=== PATIENT | male | born 1970 ===

== ENCOUNTER 2018-11-11 14:42 | Emergency (ER) | payer OTHER ==
--- NOTE | 2018-11-11 15:41 | RAD REPORT ---
EXAM DESCRIPTION: CT - Stone Protocol - 11/11/2018 3:20 pm CLINICAL HISTORY: Abdominal pain. Flank pain COMPARISON: None. TECHNIQUE: Computed axial tomography of the abdomen pelvis was obtained without oral or IV contrast. Lack of IV and oral contrast limits evaluation of solid organs, bowel, and vessels. Coronal reformat tamiko images were obtained and reviewed. All CT scans are performed using dose optimization technique as appropriate and may include automated exposure control or mA/KV adjustment according to patient size. FINDINGS: 2 millimeter left renal calculus without hydronephrosis. A right renal calculus is not see n. An ureteral calculus is not noted. A bladder calculus is not present. The liver, pancreas and adrenals appear grossly normal. 19 millimeter soft tissue structure left upper lobe likely represents accessory spleen. No additional splenic tissue noted There is no evidence of diverticulitis. The appendix appears normal Small inguinal hernias contain fat IMPRESSION: 2 millimeter nonobstructing left renal calculus
[2018-11-11] MEDS ORDERED: KETOROLAC 30 MG/ML INJ ONE (16:37)
[2018-11-11 17:11] LABS: Absolute Monocytes 0.9 K/uL (0.1-1.3); Absolute Neutrophil 7.2 K/uL (1.8-8.0); Basophils % 0.8 % (0-1.3); Eosinophils % 0.3 % (0-4.4); Hematocrit 40.9 % (39.6-49.0); Lymphocytes % 26.7 % (15.3-44.8); Monocytes % 7.7 % (3.3-12.3); RBC Red Blood Cell Count 4.37 M/uL (4.33-5.43)
--- NOTE | 2018-11-11 17:16 | EDPHYS ---
Physician Documentation [facility] Name: Kamron Murdock Age: 48 yrs Sex: Male : 1970 Arrival Date: 11/11/2018 Time: 14:45 Bed 5 Private MD: ED Physician Eloy Hilton HPI: 11/11 15:11 This 48 yrs old Male presents to ER via EMS with complaints of Possible Kidney Stone. ps1 15:11 patient with left flank pain since Sunday. States that he was started on Bactrim ps1 from [facility]. Pain is persistent. Rated as moderate. Hx of kidney stones. Feels like the same. Pain in left flank with radiation to groin. Reports fever. No NVD. . Historical: - Allergies: 14:51 No Known Allergies; ph - Home Meds: 14:51 atorvastatin oral oral [Active]; ph - PMHx: 14:51 Hypertension; Hyperlipidemia; Asthma; Kidney stones; ph - Immunization history:: Adult Immunizations up to date. - Social history:: Smoking status: Patient/guardian denies using tobacco. - Ebola Screening: : No symptoms or risks identified at this time. ROS: 15:11 Constitutional: Negative for fever, chills, and weight loss, Eyes: Negative for injury, ps1 pain, redness, and discharge, Cardiovascular: Negative for chest pain, palpitations, and edema, Respiratory: Negative for shortness of breath, cough, wheezing, and pleuritic chest pain, Abdomen/GI: Negative for abdominal pain, nausea, vomiting, diarrhea, and constipation, MS/Extremity: Negative for injury and deformity, Skin: Negative for injury, rash, and discoloration, Neuro: Negative for headache, weakness, numbness, tingling, and seizure. 15:11 : Positive for flank pain. Exam: 15:11 Constitutional: This is a well developed, well nourished patient who is awake, alert, ps1 and in no acute distress. Head/Face: Normocephalic, atraumatic. Eyes: Pupils equal round and reactive to light, extra-ocular motions intact. Lids and lashes normal. Conjunctiva and sclera are non-icteric and not injected. Cardiovascular: Regular rate and rhythm. No gallops, murmurs, or rubs. Normal PMI, no JVD. No pulse deficits. Respiratory: Lungs have equal breath sounds bilaterally, clear to auscultation and percussion. No rales, rhonchi or wheezes noted. No increased work of breathing, no retractions or nasal flaring. Abdomen/GI: Soft, non-tender, with normal bowel sounds. No distension or tympany. No guarding or rebound. No evidence of tenderness throughout. Skin: Warm, dry with normal turgor. Normal color with no rashes, no lesions, and no evidence of cellulitis. MS/ Extremity: Pulses equal, no cyanosis. Neurovascular intact. Full, normal range of motion. 15:11 : CVA tenderness, on the left. Vital Signs: 14:49 BP 130 / 79; Pulse 65; Resp 18; Temp 98.9(TE); Pulse Ox 95% on R/A; Weight 104.33 kg; ph Height 5 ft. 6 in. (167.64 cm); Pain 8/10; 16:30 BP 161 / 100; Pulse 68; Resp 18; Pulse Ox 98% on R/A; ph 17:30 BP 147 / 87; Pulse 68; Resp 18; Temp 97.8; Pulse Ox 98% on R/A; ph 14:49 Body Mass Index 37.12 (104.33 kg, 167.64 cm) ph MDM: 15:04 Patient medically screened. ps1 11/11 15:02 Order name: CBC with Diff; Complete Time: 17:15 ps1 11/11 15:02 Order name: Lipase; Complete Time: 18:56 ps1 11/11 15:02 Order name: CMP; Complete Time: 18:56 ps1 11/11 15:02 Order name: CT Stone Protocol; Complete Time: 16:18 ps1 11/11 17:14 Order name: Urine Dipstick--Ancillary (enter results); Complete Time: 18:56 bd 11/11 15:02 Order name: IV Saline Lock; Complete Time: 15:17 ps1 11/11 15:02 Order name: Labs collected and sent; Complete Time: 16:50 ps1 11/11 15:02 Order name: Urine Dipstick-Ancillary (obtain specimen); Complete Time: 17:06 ps1 Administered Medications: 16:30 Drug: TORadol 30 mg Route: IVP; Site: right antecubital; ph 17:05 Follow up: Response: No adverse reaction; Pain is decreased ph Disposition: 11/11/18 17:15 Discharged to Home. Impression: Left Kidney Stone with collic. - Condition is Stable. - Discharge Instructions: Kidney Stones, Tkum-ly-Fizy. - Prescriptions for ketorolac 10 mg Oral tablet - take 1 tablet by ORAL route every 4-6 hours not to exceed 40 mg in 24hrs; 10 tablet. Zofran 4 mg Oral Tablet - take 1 tablet by ORAL route every 12 hours As needed; 20 tablet. Flomax 0.4 mg Oral Capsule, Sust. Release 24 hr - take 1 capsule by ORAL route once daily 1/2 hour following the same meal each day; 30 capsule. - Work release form, Medication Reconciliation Form, Thank You Letter, Antibiotic Education, Prescription Opioid Use form. - Follow up: Emergency Department; When: As needed; Reason: Fever > 102 F, Worsening of condition. Follow up: Private Physician; When: [facility] within a week if still symptomatic; Reason: Further diagnostic work-up, Recheck today's complaints, Continuance of care. - Problem is new. - Symptoms are unchanged. Signatures: Dispatcher [employer] EDLuisa Wang RN RN Jennifer Tabor RN RN ph Eloy Hilton MD MD ps1 Corrections: (The following items were deleted from the chart) 20:11 17:15 11/11/2018 17:15 Discharged to Home. Impression: Left Kidney Stone with collic. fc Condition is Stable. Forms are Medication Reconciliation Form, Thank You Letter, Antibiotic Education, Prescription Opioid Use. Follow up: Emergency Department; When: As needed; Reason: Fever > 102 F, Worsening of condition. Follow up: Private Physician; When: [facility] within a week if still symptomatic; Reason: Further diagnostic work-up, Recheck today's complaints, Continuance of care. Problem is new. Symptoms are unchanged. ps1
--- NOTE | 2018-11-11 17:16 | ER ---
Nurse's Notes [facility] Name: Kamron Murdock Age: 48 yrs Sex: Male : 1970 Arrival Date: 11/11/2018 Time: 14:45 Bed 5 Private MD: Diagnosis: Left Kidney Stone with collic Presentation: 11/11 14:46 Presenting complaint: EMS states: Pt c/o pain in R flank radiating to RLQ, also c/o ph N/V, fever, and burning w/ urination, dx w/ kidney infection on Sun and placed on antibiotic. Transition of care: patient was not received from another setting of care. Onset of symptoms was November 11, 2018. Risk Assessment: Do you want to hurt yourself or someone else? Patient reports no desire to harm self or others. Initial Sepsis Screen: Does the patient meet any 2 criteria? No. Patient's initial sepsis screen is negative. Does the patient have a suspected source of infection? Yes: Dysuria/Frequency/Urgency/UTI. 14:46 Method Of Arrival: EMS: [facility] 14:46 Acuity: [id number] 3 ph 14:48 Note Pt is inmate, CO at bedside x 2. Care prior to arrival: Medication(s) given: ph Normal saline infusion, 500 mL, zofran 4 mg, Fentanyl 150 mcg total IV initiated. 20 GA, in the right antecubital area. Historical: - Allergies: 14:51 No Known Allergies; ph - Home Meds: 14:51 atorvastatin oral oral [Active]; ph - PMHx: 14:51 Hypertension; Hyperlipidemia; Asthma; Kidney stones; ph - Immunization history:: Adult Immunizations up to date. - Social history:: Smoking status: Patient/guardian denies using tobacco. - Ebola Screening: : No symptoms or risks identified at this time. Screenin:52 Abuse screen: Denies threats or abuse. Denies injuries from another. Nutritional ph screening: No deficits noted. Tuberculosis screening: No symptoms or risk factors identified. Fall Risk None identified. Assessment: 14:53 General: Appears in no apparent distress. uncomfortable, Behavior is calm, cooperative, ph appropriate for age, Reports chills for fever for > 3 days. Pain: Complains of pain in right mid back and right low back Pain radiates to right lower quadrant. Neuro: Level of Consciousness is awake, alert, obeys commands, Oriented to person, place, time, situation. Cardiovascular: Capillary refill < 3 seconds in bilateral fingers Patient's skin is warm and dry. Respiratory: Airway is patent Respiratory effort is even, unlabored, Respiratory pattern is regular, symmetrical. GI: Abdomen is round non-distended, Bowel sounds present X 4 quads. Abd is soft X 4 quads Reports lower abdominal pain, nausea, vomiting. : Reports burning with urination, pain in right flank(s), lower quadrant(s) in lower back. Derm: Skin is intact, is healthy with good turgor, Skin is pink, warm \T\ dry. Musculoskeletal: Circulation, motion, and sensation intact. Range of motion: intact in all extremities. 16:00 Reassessment: Patient appears in no apparent distress at this time. Patient and/or ph family updated on plan of care and expected duration. Pain level reassessed. Patient is alert, oriented x 3, equal unlabored respirations, skin warm/dry/pink. 17:08 Reassessment: Patient appears in no apparent distress at this time. Patient and/or ph family updated on plan of care and expected duration. Pain level reassessed. Patient is alert, oriented x 3, equal unlabored respirations, skin warm/dry/pink. 17:45 Reassessment: Patient appears in no apparent distress at this time. Patient and/or ph family updated on plan of care and expected duration. Pain level reassessed. Patient is alert, oriented x 3, equal unlabored respirations, skin warm/dry/pink. D/C papers signed by pt, awaiting transport back to [facility], guards x 2 at bedside. Vital Signs: 14:49 BP 130 / 79; Pulse 65; Resp 18; Temp 98.9(TE); Pulse Ox 95% on R/A; Weight 104.33 kg; ph Height 5 ft. 6 in. (167.64 cm); Pain 8/10; 16:30 BP 161 / 100; Pulse 68; Resp 18; Pulse Ox 98% on R/A; ph 17:30 BP 147 / 87; Pulse 68; Resp 18; Temp 97.8; Pulse Ox 98% on R/A; ph 14:49 Body Mass Index 37.12 (104.33 kg, 167.64 cm) ED Course: 14:45 Patient arrived in ED. ph 14:46 Eloy Hilton MD is Attending Physician. ps1 14:48 Triage completed. ph 14:52 Arm band placed on Patient placed in an exam room, on a stretcher, on pulse oximetry. ph 14:52 Patient has correct armband on for positive identification. Bed in low position. Call ph light in reach. Side rails up X2. Pulse ox on. NIBP on. 14:56 No provider procedures requiring assistance completed. Maintain EMS IV. Site clean \T\ ph dry. Gauge \T\ site: 20 RAC. 15:15 Jennifer Bryant, RN is Primary Nurse. ph 15:17 Patient moved to [place]. nj 15:18 CT completed. Patient tolerated procedure well. Patient moved back from [place]. nj 15:22 CT Stone Protocol In Process Unspecified. EDMS 17:55 IV discontinued, intact, bleeding controlled, No redness/swelling at site. Pressure ph dressing applied. Administered Medications: 16:30 Drug: TORadol 30 mg Route: IVP; Site: right antecubital; ph 17:05 Follow up: Response: No adverse reaction; Pain is decreased ph Outcome: 17:15 Discharge ordered by . ps1 17:56 Discharged to Law Enforcement ph 17:56 Condition: good 17:56 Discharge instructions given to patient, Instructed on discharge instructions, follow up and referral plans. medication usage, Demonstrated understanding of instructions, follow-up care, medications, Prescriptions given X 3. 20:11 Patient left the ED. Signatures: Dispatcher [employer] EDSD Luisa Bell RN RN Jennifer Bryant RN RN Tiburcio Slade wy Eloy Hilton MD MD ps1
[2018-11-11 17:52] LABS: Albumin 3.6 g/dL (3.4-5.0); Bilirubin Total 0.5 mg/dL (0.2-1.0); Potassium 4.3 mmol/L (3.5-5.1); Protein, Total 7.6 g/dL (6.4-8.2)
[2018-11-11 18:28] LABS: Urine Blood NEGATIVE (NEG); Urine Glucose NEGATIVE (NEG); Urine Protein NEGATIVE (NEG); Urine pH 6.5 (5.0-7.0)
== END 2018-11-11 20:11 | disposition home or self-care (01) ==
LOC: ER 14:42
DX: N20.0 Calculus of kidney (principal); I10 Essential (primary) hypertension; E78.5 Hyperlipidemia, unspecified; Z87.442 Personal history of urinary calculi
CPT/HCPCS: 36415; 74176; 76377; 80053; 81003; 83690; 85025; 96374; 99284